=== PATIENT | female | born 1990 | race Caucasian/White ===

== ENCOUNTER 2023-01-02 20:45 | Emergency (ER) | payer BC ==
[2023-01-02] MEDS ORDERED: Rabies Immune Globulin/PF 300 UNITS/ML VIAL IM SCH (22:15)
[2023-01-02] MEDS ORDERED: Rabies Vaccine Human 2.5 UNITS VIAL IM ONE (22:15)
== END 2023-01-02 22:50 | disposition home or self-care (01) ==
LOC: CSHERS 20:45
DX: Z20.3 Contact with and (suspected) exposure to rabies (principal)
CPT/HCPCS: 90375; 90471; 90675; 96372; 99283

== ENCOUNTER → 2023-01-09 | Emergency (ER) | payer BC ==
[~2023-01-09] MED LIST: Rabies Vaccine Human 2.5 UNITS VIAL IM ONE
== END ==
LOC: CSHSDC/OP 17:41 → CSHER/OP 17:41
DX: Z23 Encounter for immunization (principal)
CPT/HCPCS: 90471; 90472; 90675

== ENCOUNTER → 2023-01-13 | Day surgery (SDC) | payer BC | LOC: CSHER/OP 20:26 | PROVIDERS: ATTEND Emergency Medicine | DX: Z23 Encounter for immunization (principal) | CPT/HCPCS: 90675 ==

== ENCOUNTER → 2023-01-20 | Day surgery (SDC) | payer BC | LOC: CSHER/OP 12:47 | PROVIDERS: ATTEND Emergency Medicine | DX: Z23 Encounter for immunization (principal) | CPT/HCPCS: 90675 ==

== ENCOUNTER 2025-01-28 18:53 | Emergency (ER) | payer BC ==
[2025-01-28] MEDS ORDERED: Ketorolac Tromethamine 30 MG (1 mL) VIAL ONE (19:56)
[2025-01-28 20:20] LABS: #Basophils 0.04 10x3/uL (0.0-0.2); #Eosinophils 0.06 10x3/uL (0.0-0.5); #Monocytes 0.57 10x3/uL (0.0-1.1); #Neutrophils 3.86 10x3/uL (1.5-8.4); %Basophils 0.5 % (0.0-2.0); %Eosinophils 0.8 % (0.0-6.0); %Lymphocytes 41.9 % (18.0-47.0); %Monocytes 7.3 % (0.0-10.0); %Neutrophils 49.2 % (40.0-75.0); Hematocrit 37.9 % (34.9-44.5); Hemoglobin 12.4 g/dL (12.0-15.5); Mean Corpuscular Hemoglobin 29.5 pg (27.0-33.0); Mean Corpuscular Volume 90.2 fL (81.6-98.3); Platelet Count 227 10x3/uL (150-450); Red Blood Cell (RBC) Count 4.20 10x6/uL (3.90-5.03); White Blood Cell (WBC) Count 7.83 10x3/uL (3.5-10.5)
[2025-01-28 20:26] LABS: BHCG - Serum Negative (NEGATIVE); Pregs Control Background? CLEAR/WHITE (CLR/WHITE); Pregs Control Bar Appear? YES (CONTROL BAR)
[2025-01-28 20:31] LABS: ALT (SGPT) 16 U/L (Less than 34); AST (SGOT) 18 U/L (11-34); Albumin 4.3 g/dL (3.1-4.5); Alkaline Phosphatase 26 U/L (40-110); Anion Gap 12 mmol/L (10-20); BUN (Urea Nitrogen) 14 mg/dL (7.0-18.7); Bilirubin, Total 0.6 mg/dL (0.3-1.2); Calc. Creatinine Clearance 0 mL/min (70-130); Calcium 9.2 mg/dL (7.8-10.44); Carbon Dioxide 24 mmol/L (22-29); Chloride 105 mmol/L (98-107); Globulin 3.0 g/dL (2.4-3.5); Glucose 82 mg/dL (70-105); Lipase 34 U/L (8-78); Potassium 4.2 mmol/L (3.5-5.1); Sodium 137 mmol/L (136-145)
[2025-01-28 20:49] LABS: Glucose, Urine (Dipstick) Normal (Negative); Leukocyte Negative (Negative); Protein, Urine (Dipstick) Negative (Neg-Trace); Specific Gravity, Urine 1.005 (1.005-1.030)
[2025-01-28 21:17] LABS: Bacteria/HPF Rare-Few HPF (None Seen); CAUTI Indications for Culture Pelvic or flank pain; RBC/HPF 0-3 HPF (0-3); WBC/HPF 0-3 HPF (0-3)
[2025-01-28 21:18] LABS: Urine Culture Reflex No No
== END 2025-01-28 21:50 | disposition home or self-care (01) ==
LOC: CSHERS 18:53
DX: N83.201 Unspecified ovarian cyst, right side (principal); M25.511 Pain in right shoulder; R53.1 Weakness
CPT/HCPCS: 36415; 71045; 74176; 80053; 81001; 83690; 84703; 85025; 87428; 93005; 96374; J1885